=== PATIENT | male | born 1950 | race African-American/Black ===

== ENCOUNTER 2018-10-10 05:14 | Inpatient (IN) ==
[2018-10-03 14:52] LABS: HEMATOCRIT 45.7 % (42.0-52.0); HEMOGLOBIN 15.6 g/dL (14.0-18.0); INR 0.9; MCH 28.2 PG (27-31); MCHC 34.1 g/dL (33-37); MCV 82.6 FL (81-99); MPV 10.1 FL (7.4-10.4); PROTIME 12.8 Seconds (11.0-16.0); RBC 5.53 XMIL (4.7-6.1); RDW 13.3 % (11.5-14.5); WBC 7.73 X1000 (4.8-10.8)
[2018-10-03 14:53] LABS: PTT 29.9 Seconds (22.3-41.8)
--- NOTE | 2018-10-03 15:04 | EKG Report ---
Test Performed on : 10/03/2018 2:33:34 PM Test Reason : PAT Blood Pressure : / mmHG Vent. Rate : 086 BPM Atrial Rate : 086 BPM P-R Int : 220 ms QRS Dur : 100 ms QT Int : 366 ms P-R-T Axes : 070 058 258 degrees QTc Int : 437 ms Sinus rhythm. with 1st degree AV block. Left ventricular hypertrophy with repolarization abnormality Abnormal ECG No previous ECGs available Confirmed by Elliott CARPENTER, Juan C Tapia ([id number]) on 10/03/2018 9:18:17 PM
[2018-10-03 15:31] LABS: AGAP 8; BUN 9 mg/dL (8-22); CALCIUM 9.3 mg/dL (8.8-10.2); CHLORIDE 99 mmol/L (98-107); COSMO 278; CREATININE 0.8 mg/dL (0.7-1.2); ESTIMATED GFR > 60; GLUCOSE 158 mg/dL (70-104); POTASSIUM 3.9 mmol/L (3.5-5.1); SODIUM 138 mmol/L (136-145); TCO2 31 mmol/L (25-35)
[2018-10-10] MEDS ORDERED: PEPCID ONE (05:38)
[2018-10-10] MEDS ORDERED: REGLAN ONE (05:38)
[2018-10-10] MEDS ORDERED: LEVAQUIN 500 MG/D5W 500 MG/100 ML IVPB ONE (05:38)
[2018-10-10] MEDS ORDERED: LR 1,000 ML ONE ×3 (05:38→12:28)
[2018-10-10] MEDS ORDERED: DIPRIVAN 1% ONE (06:24)
[2018-10-10] MEDS ORDERED: FENTANYL ONE (06:24)
[2018-10-10] MEDS ORDERED: NORCURON ONE (06:25)
[2018-10-10] MEDS ORDERED: SODIUM CHLORIDE 0.9% 10 ML ONE (06:25)
[2018-10-10] MEDS ORDERED: ROBINUL ONE ×2 (06:25→08:34)
[2018-10-10] MEDS ORDERED: QUELICIN (DOSE) ONE (06:25)
[2018-10-10] MEDS ORDERED: XYLOCAINE-MPF 2% ONE (06:25)
[2018-10-10] MEDS ORDERED: SENSORCAINE-MPF 0.5%/EPI 1:200,000 ONE (06:33)
[2018-10-10] MEDS ORDERED: B & O 16A SUPP ONE (06:33)
[2018-10-10 08:21] LABS: URINE SOURCE CATH
[2018-10-10 08:26] LABS: BILIRUBIN URINE NEGATIVE (NEGATIVE); BLOOD URINE NEGATIVE (NEGATIVE); COLOR YELLOW; GLUCOSE URINE NEGATIVE (NEGATIVE); KETONE URINE NEGATIVE (NEGATIVE); LEUKOCYTES URINE NEGATIVE (NEGATIVE); NITRITE URINE NEGATIVE (NEGATIVE); PROTEIN URINE NEGATIVE (NEGATIVE); SP GRAVITY URINE 1.005; TURBIDITY URINE CLEAR (CLEAR); UROBILINOGEN URINE NORMAL (NORMAL)
[2018-10-10 08:28] LABS: UR EPITHELIAL CELLS <10 /HPF (<10); URINE BACTERIA NEGATIVE /HPF; URINE RBC <10 /HPF (<10); URINE WBC <10 /HPF (<10)
[2018-10-10] MEDS ORDERED: OFIRMEV 1000 MG/ISOTONIC SOLN 1,000 MG/100 ML BOTTLE ONE (08:32)
[2018-10-10] MEDS ORDERED: ZOFRAN ONE (08:32)
[2018-10-10] MEDS ORDERED: NEOSTIGMINE ONE (08:34)
[2018-10-10] MEDS: DILAUDID ONE ×4 (12:28→13:00)
[2018-10-10] MEDS ORDERED: MORPHINE IV PRN (12:51)
[2018-10-10] MEDS ORDERED: ZOFRAN IV PRN (13:00)
[2018-10-10] MEDS ORDERED: LABETALOL IV PRN (13:00)
[2018-10-10] MEDS: LR 1,000 ML IV SCH ×3 (14:00→20:28)
[2018-10-10] MEDS: NORCO-7.5 PO PRN ×2 (16:33→20:26)
[2018-10-10] MEDS: HUMULIN R SUBQ SCH ×2 (16:37→20:31)
[2018-10-10] MEDS: COLACE PO SCH (20:27)
[2018-10-10] MEDS: TENORMIN PO SCH (20:27)
[2018-10-10] MEDS: PERIDEX MT SCH (20:27)
[2018-10-11] MEDS: NORCO-7.5 PO PRN ×4 (00:48→21:14)
[2018-10-11] MEDS: HUMULIN R SUBQ SCH ×4 (04:21→21:15)
[2018-10-11] MEDS: LEVAQUIN 500 MG/D5W 500 MG/100 ML IVPB IV SCH (04:21)
[2018-10-11] MEDS: LOVENOX SUBQ SCH (07:01)
[2018-10-11 07:12] LABS: HEMATOCRIT 36.2 % (42.0-52.0); HEMOGLOBIN 12.1 g/dL (14.0-18.0); MCH 28.1 PG (27-31); MCHC 33.4 g/dL (33-37); MCV 84.2 FL (81-99); MPV 10.4 FL (7.4-10.4); RBC 4.3 XMIL (4.7-6.1); WBC 11.08 X1000 (4.8-10.8)
[2018-10-11 07:33] LABS: CREATININE 1.5 mg/dL (0.7-1.2); POTASSIUM 3.9 mmol/L (3.5-5.1)
--- NOTE | 2018-10-11 08:10 | PROGRESS NOTE ---
DATE: 10/11/2018 SUBJECTIVE: Postoperative day 1 from a robotic-assisted laparoscopic prostatectomy and urethral suspension. No acute events overnight. The patient's pain has been well controlled. Remains afebrile with stable vital signs. The patient was on nasal cannula and now has been off with 96% oxygen saturation on room air. The patient tolerated clear liquids yesterday. The patient had approximately 1 L of urinary output yesterday. Slightly pinkish tinged urine this morning. Denies any nausea or vomiting. He says he feels that his abdomen is slightly distended , but denies significant pain. OBJECTIVE: Vital signs: Temperature 98.4 degrees, heart rate 77, blood pressure 147/77, oxygen saturation 96% on room air. General: No acute distress. Resting comfortably in bed. Respiratory: Good respiratory effort without audible wheezing or rales. Cardiovascular: No evidence of lower extremity edema. Abdomen: Soft, nontender, slightly distended, but appropriate postoperatively. : Urethral catheter in place with light pinkish urine draining well. No evidence of any clots and appears to be clearing. Skin: All incisions are well healed, covered with skin adhesive. No evidence of any drainage from incisions. LABORATORIES: White blood cell count 11.1, hemoglobin 12.1, hematocrit 36.2, platelets 247,000. Sodium 141, potassium 3.9, chloride 100, bicarb 31, BUN 19, creatinine 1.5, glucose 153. PLAN: Mr. Valerio is a 67-year-old with hypertension, type 2 diabetes, hyperlipidemia, recently diagnosed with low risk prostate cancer and underwent robotic assisted laparoscopic prostatectomy with urethral suspension yesterday. The patient has been doing well. Pain is well controlled. Good urinary output from urethral catheter, approximately 1 L urinary output of clear, pink urinary output. The patient remains afebrile. White blood cell count 11.1. His creatinine did increase from 0.8 to 1.5 today. I think the patient may be slightly dry due to decreased urinary output. We will give a bolus of LR and watch until at least lunchtime. If urine output improves, would hold off on repeating his BMP at this time. The patient received a dose Lovenox this morning. We will continue with oral pain medication and stool softeners with senna and Colace. Encourage the patient to remain ambulatory. Encouraged him to perform incentive spirometry. Continue with his home medications. Received Levaquin for perioperative antibiotics. We will continue to monitor clinically. cc: Elijah Veloz MD [facility]
--- NOTE | 2018-10-11 10:08 | OPERATIVE NOTE ---
PROCEDURE DATE: 10/10/2018 PREOPERATIVE DIAGNOSIS: Low risk prostate cancer. POSTOPERATIVE DIAGNOSIS: Low risk prostate cancer. PROCEDURE PERFORMED: 1. Robotic-assisted laparoscopic prostatectomy. 2. Laparoscopic urethral suspension. SURGEON: Dr. Elijah Veloz. LEARNING CENTER COORDINATOR: Derrek Busch. ANESTHESIA: Endotracheal intubation. SPECIMENS REMOVED: 1. Fat lymph nodes overlying prostate. 2. Prostate 3. Seminal vesicles. 4. Vas deferens. DRAINS: 18-Georgian Garza catheter. BLOOD LOSS: 75 mL. COMPLICATIONS: None. OPERATIVE FINDINGS: The patient had no evidence of any lymphadenopathy of overlying the iliac vessels. The patient did have bilateral indirect inguinal hernias that were fat containing which were easily removed during the dissection of the bladder in the space of Retzius. The patient's prostate measured approximately 40 g. The patient had moderately distended seminal vesicles bilaterally. The prostate was removed in its entirety and appeared to be quite smooth. No obvious a extracapsular extension of prostate cancer external to the specimen. He underwent bilateral nerve-sparing. Patient had slightly enlarged bladder neck that required narrowing. The patient then had vesicourethral anastomosis with testing of the vesicourethral anastomosis with 120 mL with no evidence of any active leak. INDICATION FOR PROCEDURE: Mr. Lynch is a 67-year-old with a history of multiple cores of Gile 3 + 3 prostate cancer. The patient had biopsies that showed cancer present in 7/12 cores. After thorough discussion with patient regarding interventions for his prostate cancer, including radiation, active surveillance, surgery, as well as ablative procedures. Patient elected to proceed with robotic-assisted laparoscopic prostatectomy with urethral suspension. Discussed the risks, benefits, and alternatives of procedure, which include risk of bleeding, infection, damage to surrounding structures, as well as terminal gauger incontinence and erectile dysfunction. After complete discussion of all risks and benefits, the patient elected to proceed. DESCRIPTION OF PROCEDURE: After informed consent was obtained, the patient was brought to the operating room, placed on the operating table in supine position. He underwent general anesthesia and received preoperative antibiotics with Levaquin. The patient was then placed into a dorsal lithotomy position with all pressure points padded with his arms tucked for stability. His abdomen was then shaved. His abdomen and perineum were then prepped and draped in usual sterile fashion. At which time a preop time out was performed with all parties in agreement, including anesthesia, surgical and nursing staff. Next, an 18-Georgian Garza catheter was inserted, which drained clear yellow urine. The ballon was inflated with 10 mL sterile water. At which time, a Veress needle was then placed superior to the umbilicus and then connected with a saline filled syringe. I performed a drop test which showed good flow into the abdomen. With aspiration there was no evidence of blood or succus. The abdomen was then inflated up to a pressure of 15 mmHg. Following this, Marcaine was then injected overlying the incision for a preprocedure block, an incision was made in the skin with a scalpel and in the supraumbilical position, and a 12 mm trocar was then introduced. Following this, laparoscopic scope was inserted and assisted in visualization of the placement of the robotic trocars and the other assistant men's lacrosse coach port. The skin overlying each of the incisions was then infiltrated with Marcaine for a block. Each of the incisions were marked out and using the laparoscope easily visualized as the trocars were passed. No trauma to the bowel or surrounding tissues. There was one robotic trocar on the left, two robotic trocars on the right, as well as assistant men's lacrosse coach port in the left upper quadrant. No evidence of any bowel injury or adhesions were visualized near the trocars. Next, the patient was then placed into a steep Trendelenburg position and the robot was then docked. We initially began by taking down some of the lateral attachments of the left colon. There was attached to the lateral wall of the abdomen which easily allowed for dropping of the colon away from the lateral sidewall. After adequate mobilization of the bowel, there was evidence of several diverticulum present in the sigmoid colon. Next, an incision was made approximately 2 cm above the rectum through the peritoneum. This was divided. At which point, visualization of the left vas deferens was seen. This was isolated and transected and completely dissected out. Following this, we then dissected out the left seminal vesicle. Electrocautery was limited in the lateral portion of the seminal vesicle in order to preserve the neurovascular bundles while using clips for dissection. We then performed a similar procedure on the right side. Upon complete dissection of the vas deferens and seminal vesicles bilaterally. Attention was then placed posterior to the seminal vesicles in Denonvilliers fascia. These were excised to allow dissection down to the perirectal tissues. Following this, were able to dissect both the right and left portions down to the adipose tissues overlying the rectum and free this as far possible towards the apex. Next, our attention was then placed to the anterior abdominal wall and dropping the bladder. The medial umbilical ligaments bilaterally were cauterized and taken down separately to expose the space of Retzius. Once the bladder was then completely dropped, evidence of bilateral fat containing hernias in the indirect position were seen. These were easily dissected out with no evidence of any bowel or bladder in the hernias. After complete dropping the bladder, fat overlying the endopelvic fascia and the prostate was excised and sent as a separate specimen with the fat lymph nodes overlying the prostate. We then excised the endopelvic fascia following the contour of the prostate toward the apex. The puboprostatic ligaments were quite broad and these were sharply divided bilaterally. The superficial dorsal vein complex was then controlled by bipolar cautery. Following this, the deep dorsal vein complex was then visualized and suture ligated with a 0 V-Loc suture in a [id number] fashion with an anterior periosteal suture. After this, our attention was then placed to dissecting the bladder neck. This was identified by gently tugging on the Garza catheter with the balloon inflated and using monopolar cautery we were able to incise the bladder neck. The Garza catheter was encountered and brought out of the defect. The 4th arm was then used to place anterior traction on the prostate. This allowed for good visualization of the posterior bladder and the plane was dissected in the area of tissue between the prostate and the bladder. There was no evidence of any median lobe. Following complete incision, the posterior bladder neck was made circumferentially and the prostate was further elevated anteriorly with the 4th arm in the plane developed between the prostate and the bladder posteriorly until visualized the vas deferens and seminal vesicles of the prostate. The bladder neck was quite broad, likely related to the size of the prostate's lateral lobes. After dissecting off of the bladder and prostate, we were able to use the 4th arm to retract the vas deferens and seminal vesicles. These were brought up into view and dissected out the neurovascular bundles on the left side and using hemo-lock clips and avoiding cautery to the bundles. We then attempted to peel away the neurovascular bundles posterior and lateral on the left side of the prostate. An antegrade and retrograde neurovascular nerve spare was attempted once completely dissected the prostate away from the neurovascular bundle. We were able to dissect through the prostatic pedicles and the neurovascular bundle. Following this, attention was then placed on the right side. A similar type procedure was performed to allow good mobility of the nerves off of the prostate and preserving the neurovascular bundles. Following this, good mobility of the prostate was obtained after dissection of the neurovascular bundles bilaterally. Attention was then placed to dissecting the apex. The dorsal vein complex was divided with monopolar until the periurethral tissues were seen and this was dissected sharply with cold scissors. This allowed for good mobilization of the prostate away from the urethra, with good urethral sparing. The urethra was then sharply transected with scissors. Following this , a posterior lip of the prostate was dissected away and the posterior fascia was then excised sharply to completely dissect off the prostate. The prostate was then placed into an Endo Catch bag, as well as residual fat overlying the prostate. The field was then irrigated and hemostasis appeared to be excellent. Pressure was then decreased down to 3. No evidence of any active bleeding. Following this, 3-0 Vicryl was placed into the abdomen and bladder neck reconstruction was undertaken. The bladder neck appeared to be quite broad. Using [id number] sutures, I was able to narrow the bladder neck to an appropriate size. Both ureteral orifices and the trigone was visualized and far away from our closure. Efflux was seen from both orifices after our reconstruction. Next, a 3-0 V-Loc suture was then introduced into the abdomen and a posterior Zay stitch was performed in a running fashion, connecting the posterior vesicle fascia and posterior urethral fascia layers. This was able to approximate the bladder to the urethra and later saved for a laparoscopic urethral suspension. Next, we performed a formal vesicourethral anastomosis using two 3-0 running Vicryl sutures that were tied to one another in a clockwise and counter-clockwise fashion, eventually crossing the sutures anteriorly. Next, we then placed a new 18- Georgian Garza catheter and anastomosis was then tested with 120 mL of sterile irrigant. This found to be watertight with good filling of the bladder with no evidence of leak from the anastomosis. The bladder was then distended appropriately and drained effectively. We then placed our attention to the tying down the vesicourethral anastomosis sutures. We then performed a laparoscopic urethral suspension which was performed with the previously placed sutures from the posterior plate to the pubic periosteum. Good support was obtained for the urethral anastomosis which appeared to be well positioned. Pressure was then again decreased down to 3 mmHg without any evidence of any active bleeding. Instruments were then all removed and the robot was undocked. We then removed the specimen, extending the supraumbilical incision to allow for removal of the EndoCatch bag. The wound was then copiously irrigated and 0 PDS suture was then used to close the supraumbilical incision and 0 Vicryl was then used to close the fascia of the 12 mm system port. Incisions were then injected again with Marcaine and a postprocedure block. Wounds were then irrigated once more and a 4-0 Monocryl suture was then used to close subcuticular at each of the incisions and prior port sites. Following this, Covidien adhesive was then applied. The catheter was then placed to gravity drainage with StatLock on the lower extremity. The patient was then extubated, awoken and was taken to recovery in stable condition. All lap and suture counts were correct. Dr. Busch was present for all orta portions of the procedure and he acted as my assistant men's lacrosse coach. DISPOSITION: The patient will be admitted to the hospital overnight for monitoring. cc: Elijah Veloz MD [facility]
[2018-10-11] MEDS: NORVASC PO SCH (10:11)
[2018-10-11] MEDS: COLACE PO SCH ×2 (10:11→21:14)
[2018-10-11] MEDS: PERIDEX MT SCH ×2 (10:11→21:14)
[2018-10-11] MEDS: TENORMIN PO SCH ×2 (10:11→21:14)
[2018-10-11] MEDS: LR 1,000 ML IV SCH ×9 (11:49→21:13)
--- NOTE | 2018-10-11 11:55 | Diag Imaging Result Doc PS360 ---
CT HEAD W/O CONTRAST - 10/11/2018 INDICATION: Neurologic changes, with right side weakness COMPARISON: None FINDINGS: The ventricles and sulci are normal in size and contour. There is mild patchy cerebral white matter chronic microvascular disease. No intracranial mass or hemorrhage. The skull is intact. The sinuses are clear. IMPRESSION: No acute process by CT. Consider a brain MRI. This exam was performed using automated exposure control, adjustment of mA or kV according to patient size, and/or use of iterative reconstruction technique Electronically signed by John Yang 10/11/2018 11:53 AM
[2018-10-11 12:04] LABS: HEMATOCRIT 35.8 % (42.0-52.0); MCH 28.4 PG (27-31); MCHC 33.5 g/dL (33-37); MCV 84.8 FL (81-99); RBC 4.22 XMIL (4.7-6.1); WBC 14.19 X1000 (4.8-10.8)
[2018-10-11 12:16] LABS: INR 1.16; PROTIME 15.8 Seconds (11.0-16.0); PTT 33.9 Seconds (22.3-41.8)
[2018-10-11 12:32] LABS: CALCIUM 8.3 mg/dL (8.8-10.2); CREATININE 1.5 mg/dL (0.7-1.2); POTASSIUM 4.2 mmol/L (3.5-5.1)
--- NOTE | 2018-10-11 15:26 | CONSULTATION ---
DATE OF CONSULTATION: 10/11/2018 REASON FOR CONSULTATION: Possible stroke. HISTORY OF PRESENT ILLNESS: This is a 67-year-old right-handed male with history of diabetes, hypertension, who was admitted for laparoscopic prostatectomy and urethral suspension. He was diagnosed with low risk prostate cancer recently. He is postop day 1 from the surgery and has done well in that regard. Apparently this morning the nurse thought that he was a little bit confused, and when they were examining him and asking him to plantar flex and dorsiflex, he was not participating; however, he seemed to think that he was doing it. This was with the right leg. He seemed to be a little bit confused as well. There was no weakness noted to his right arm. No mention of facial asymmetry. Head CT was obtained that did not show acute findings. When talking with the patient, he tells me that he has had difficulty with his right leg for over a year. It started when he lived in [place]. He says his knee radha and gives out on him randomly. It is not painful. He has no pain associated with it. He reports "spasm" but with further questioning, he indicates that spasm to him means that the knee keeps repeatedly giving way, more like clustering. He denies numbness. He feels that it has given way more recently in the last month. He was given a cane to use in [place] and has been using that more frequently recently. He denies back pain. No bowel or bladder changes. No leg pain. No shooting pain. When asking why he is in the hospital, he initially seemed to not recall that he had just undergone a surgical procedure and instead began talking randomly. Later though, he agreed he just had a surgical procedure. PAST MEDICAL HISTORY: He reports diabetes, hypertension and a recent prostate cancer diagnosis. FAMILY HISTORY: His father had a stroke. No seizures. SOCIAL HISTORY: No tobacco or illicits. He reports occasional social alcohol. He is a retired computer mechanic. He lives with his mother in [place]. ALLERGIES: Listed to amoxicillin and iodine. REVIEW OF SYSTEMS: A balance of 12 was conducted and otherwise is negative except for that detailed in the HPI. He denies headache or visual changes in addition to the above. PHYSICAL EXAMINATION: Vital signs: He is afebrile. Blood pressures were elevated on admission at 160s to 190 over 100 but since that time have been recently 130s to 170s systolic over 70s to 80s diastolic, pulse 70s, respirations 16, saturation 96% on room air. No hypotensive recordings. Sitting up in bed feeding himself lunch. He is awake, alert, oriented to self, the president. He initially says that he is at home and then later agrees he is in the hospital. He initially said 1919 and then corrected to 2019. He knew the month of October. He was off by one day on the date and day of the week. He follows simple and complex commands. Left right and digit distinction preserved. No language disturbance. No dysarthria. Discussed recent and remote events, though there were a couple of times discussing recent events that he seems very slightly confused. His pupils are miotic 2mm, with very minimal size asymmetry, round and reactive to light. Gaze conjugate and forward. EOMs are full. Face symmetric with equal activation. Facial sensation intact. Tongue is midline. Palate elevates symmetrically. He can hear. Shoulder shrug is full. No drift. Strength is preserved in the arms and legs and symmetric both distally and proximally. Rapid alternating movements and finger to nose are intact. He reports preserved sensation to light touch and pinprick on the arms and legs. Reflexes absent at the ankles, 1+ at the knees, 2+ at the wrist. No clonus. Planar response is flexor. I did not test his gait. DIAGNOSTIC DATA: Head CT personally reviewed, no acute findings. White count is 14 today. Normal sodium. Creatinine 1.5 today, yesterday normal. Normal BUN. Blood sugar is 120s to 200. ASSESSMENT AND PLAN: A 67-year-old male with a history of diabetes and hypertension as well as recent low grade prostate cancer diagnosis, who is postop day 1 from laparoscopic prostatectomy. He had an event of confusion, and possibly right lower extremity weakness. He does not have focal symptoms on my exam currently, though I do get a sense of some slight confusion. His confusion could be related to medications he has received postop, and if so, should hopefully clear. It seems very minimal on exam currently. With regard to the concern for transient right lower extremity weakness, I am reassured with a negative head CT; however, I think an MRI would provide a more detailed look to rule out stroke. It would not rule out TIA though. I would continue to monitor him with neurochecks. Continue IVFs as tolerated and avoid hypotension. Given his risk factors, I think a low dose aspirin daily would be of benefit once it is safe for him to take that from a post surgery perspective. Continue aggressive blood sugar control, check lipid profile. Thank you for the consultation. cc: MD Elijah Carolina MD MTDD
[2018-10-11 17:34] LABS: URINE SOURCE CATH
[2018-10-11 17:45] LABS: UR EPITHELIAL CELLS <10 /HPF (<10); URINE BACTERIA NEGATIVE /HPF; URINE RBC TNTC /HPF (<10); URINE WBC TNTC /HPF (<10)
[2018-10-11 17:46] LABS: BILIRUBIN URINE NEGATIVE (NEGATIVE); BLOOD URINE LARGE (NEGATIVE); COLOR ORANGE; GLUCOSE URINE NEGATIVE (NEGATIVE); KETONE URINE NEGATIVE (NEGATIVE); LEUKOCYTES URINE MODERATE (NEGATIVE); NITRITE URINE NEGATIVE (NEGATIVE); PH URINE 5.5; PROTEIN URINE 100 mg/dL (NEGATIVE); SP GRAVITY URINE 1.018; TURBIDITY URINE TURBID (CLEAR); UROBILINOGEN URINE NORMAL (NORMAL)
[2018-10-11] MEDS: LIPITOR PO SCH (21:13)
[2018-10-12] MEDS: HUMULIN R SUBQ SCH ×3 (02:58→15:11)
[2018-10-12] MEDS: NORCO-7.5 PO PRN (02:59)
[2018-10-12] MEDS: LEVAQUIN 500 MG/D5W 500 MG/100 ML IVPB IV SCH (02:59)
[2018-10-12] MEDS: LOVENOX SUBQ SCH (05:39)
[2018-10-12 06:37] LABS: HEMATOCRIT 29.9 % (42.0-52.0); HEMOGLOBIN 9.9 g/dL (14.0-18.0); MCH 28.2 PG (27-31); MCHC 33.1 g/dL (33-37); MCV 85.2 FL (81-99); MPV 10.3 FL (7.4-10.4); RBC 3.51 XMIL (4.7-6.1); WBC 13.21 X1000 (4.8-10.8)
[2018-10-12 06:57] LABS: AGAP 9; BUN 25 mg/dL (8-22); CALCIUM 8.2 mg/dL (8.8-10.2); CHLORIDE 101 mmol/L (98-107); COSMO 280; CREATININE 1.4 mg/dL (0.7-1.2); ESTIMATED GFR > 60; GLUCOSE 132 mg/dL (70-104); POTASSIUM 3.8 mmol/L (3.5-5.1); SODIUM 137 mmol/L (136-145); TCO2 27 mmol/L (25-35)
[2018-10-12] MEDS: TENORMIN PO SCH ×2 (08:20→22:12)
[2018-10-12] MEDS: PERIDEX MT SCH ×2 (08:20→22:12)
[2018-10-12] MEDS: COLACE PO SCH ×2 (08:20→22:12)
[2018-10-12] MEDS: NORVASC PO SCH (08:20)
[2018-10-12] MEDS: LASIX IV SCH (08:20)
[2018-10-12] MEDS: LR 1,000 ML IV SCH ×9 (08:22→17:59)
--- NOTE | 2018-10-12 08:23 | PROGRESS NOTE ---
DATE: 10/12/2018 SUBJECTIVE: Postop day 2 from a robotic-assisted laparoscopic prostatectomy with urethral suspension. Overall, patient seems to be doing much better today. The patient had 800 mL of urine output recorded yesterday. However, the urine in the chamber this morning is over 400 mL of clear yellow urine that was unrecorded. The patient yesterday had some episodes of lower extremity weakness, most common on the right lower extremity with difficulty lifting his leg, which is improved. The patient was seen by Neurology and a CT of the head was performed which was negative for cerebrovascular accident. The patient overall states he feels better. He feels like he is going to pass some gas this morning. Denies any nausea or vomiting. He has been tolerating a diabetic diet. OBJECTIVE: Vital signs: Temperature 99.1 degrees, pulse 96, blood pressure 141 /91, oxygen saturation 95% on room air. Respiratory: Good respiratory effort without audible wheezing or rales. Cardiovascular: No evidence of tachycardia. 1+ lower extremity edema. Abdomen: Soft, nontender. Continues to have mild distention, which is slightly improved from yesterday. Genitourinary: Urethral catheter in place with clear yellow urine, approximately 400 mL present within the catheter bag. Multiple mL of urine drained during evaluation this morning. Normal phallus. Normal testicles bilaterally. Small amount of bruising present within the scrotum wall itself. Musculoskeletal: Moving all extremities. Neurologic: Gross motor and sensory intact with equal strength in bilateral lower extremities. LABORATORY DATA: White blood cell count 13.1, hemoglobin 9.9, hematocrit 29.9, platelets 207,000. Sodium 137, potassium 3.8, chloride 101, bicarb 27, BUN 25, creatinine 1.4, glucose 132, calcium 8.2. ASSESSMENT AND PLAN: Mr. Lynch is a 67-year-old with type 2 diabetes, hypertension, hyperlipidemia, who was recently diagnosed with low-risk prostate cancer and underwent robotic- assisted laparoscopic prostatectomy with urethral suspension on Wednesday. The patient developed some right lower weakness yesterday on assessment by nursing and noticed changes in pupils. The patient underwent a CT of the head which was negative, and a neurology consult. It was recommended that he get an MRI performed. We will plan to try to obtain this today. The patient did have some decreased urinary output, which was reddish. A UA was sent yesterday, which showed a large amount of protein, blood and leukocytes. This is likely partly related to surgery, but also could be related to myoglobinuria due the redness of his urine. Myoglobin was sent yesterday, awaiting for it to return. The patient's urine output has improved. The patient does take a Lasix at home and is net positive a little over 4 L since admission. I think this is likely leading to some dilutional anemia. We will give him a low dose of Lasix today 20 mg IV. The patient takes 40 mg daily at home. Will continue with his home medications, oral pain medications as needed, Colace and Senna today. The patient feels like he may have flatus later this morning. The patient's pain seems to be well controlled. He is tolerating p.o. intake. His distention is improving. Encourage him to be ambulatory. Continue with incentive spirometer. Will continue to monitor for clinical progress and neurology recommendations. cc: Elijah Veloz MD MTDD
--- NOTE | 2018-10-12 11:15 | Diag Imaging Result Doc PS360 ---
EXAM: MRI BRAIN W/O CONTRAST INDICATION: r/o stroke COMPARISON: CT head dated 10/11/2018. No prior MRI is available for comparison. FINDINGS: There are several foci of restricted diffusion in the frontal lobes and parietal lobes bilaterally indicating acute multifocal lacunar infarcts, predominantly in the periventricular white matter. The distribution is somewhat suspicious for a venous infarct. However, no abnormal cerebral venous flow voids are appreciated. It may also represent an embolic phenomenon, however. MRV may be helpful if clinically warranted. There is also patchy T2/FLAIR hyperintensity in the periventricular and subcortical white matter indicating moderate white matter microangiopathy. There is no discrete intracranial mass, mass effect, or intracranial hemorrhage. The surrounding soft tissues and bony structures are essentially unremarkable. IMPRESSION: Multifocal acute infarcts bilaterally mainly in the periventricular region. Please see above discussion. The findings were discussed with the patient's nurse, Ange Cardenas, at 10/12/2018 11:12 AM and was acknowledged. Electronically signed by Luis Flores 10/12/2018 11:13 AM
--- NOTE | 2018-10-12 16:31 | EKG Report ---
Test Performed on : 10/12/2018 4:22:09 PM Test Reason : Recent CVA and low grade tachycardia Blood Pressure : / mmHG Vent. Rate : 095 BPM Atrial Rate : 095 BPM P-R Int : 220 ms QRS Dur : 094 ms QT Int : 332 ms P-R-T Axes : 045 008 231 degrees QTc Int : 417 ms Sinus rhythm. with 1st degree AV block. ST & T wave abnormality, consider inferolateral ischemia Abnormal ECG When compared with ECG of 03-OCT-2018 14:33, No significant change was found Unconfirmed Result
[2018-10-12] MEDS: LIPITOR PO SCH (22:12)
[2018-10-13 07:08] LABS: BASO# 0.02 X1000 (0.0-0.2); BASO% 0.2 % (0.0-0.8); EOS# 0.12 X1000 (0.0-0.7); EOS% 1.1 % (0.0-10.0); HEMATOCRIT 29.8 % (42.0-52.0); HEMOGLOBIN 9.7 g/dL (14.0-18.0); IMM GRAN# 0.02 X1000 (0.0-0.04); IMM GRAN% 0.2 % (0.0-0.5); LYMPH# 1.23 X1000 (1.2-3.4); LYMPH% 11.2 % (20.5-51.1); MCH 27.4 PG (27-31); MCHC 32.6 g/dL (33-37); MCV 84.2 FL (81-99); MONO# 1.21 X1000 (0.11-0.59); MONO% 11.1 % (1.7-9.3); MPV 10.5 FL (7.4-10.4); NEUT# 8.34 X1000 (1.4-6.5); NEUT% 76.2 % (42.2-75.2); PLT 231 X1000 (130-400); RBC 3.54 XMIL (4.7-6.1); RDW 12.8 % (11.5-14.5); WBC 10.94 X1000 (4.8-10.8)
[2018-10-13 07:28] LABS: AGAP 9; BUN 17 mg/dL (8-22); CALCIUM 8.6 mg/dL (8.8-10.2); CHLORIDE 106 mmol/L (98-107); COSMO 292; ESTIMATED GFR > 60; GLUCOSE 168 mg/dL (70-104); MAGNESIUM 1.9 mg/dL (1.5-2.7); PHOSPHORUS 2.1 mg/dL (2.7-4.5); POTASSIUM 3.6 mmol/L (3.5-5.1); SODIUM 144 mmol/L (136-145); TCO2 29 mmol/L (25-35)
[2018-10-13] MEDS: LR 1,000 ML IV SCH ×4 (07:42→15:44)
--- NOTE | 2018-10-13 08:47 | PROGRESS NOTE ---
DATE: 10/13/2018 SUBJECTIVE: Postoperative day 3 from a robotic-assisted laparoscopic prostatectomy and urethral suspension. Had improved urinary output yesterday with over 3.9 L of output. His catheter is draining clear yellow urine. He remains afebrile with stable vital signs. Denies any neurologic changes. Went for an MRI yesterday that showed possible ventricular venous infarcts. Underwent an MRV which was reported as normal by Dr. Flores. Performed echocardiogram yesterday. Waiting for results. Sent cardiac enzymes which were all negative. Overall, patient appears to be stable. He is tolerating a diet, passing gas, with good pain control. OBJECTIVE: Vital Signs: Temperature 98.5 degrees, blood pressure 153/80, heart rate 81, oxygen saturation 100% on room. General: Alert and oriented x3. Respiratory: Good respiratory effort without audible wheezing or rales. Abdomen: Soft, nontender, nondistended. No palpable masses. : Urethral catheter in place, draining clear yellow urine. No evidence of any scrotal or penile edema. No suprapubic tenderness. Neurologic: Gross motor and sensory intact. Moving all extremities without defects. Skin: Incisions are well-healed, covered with Covidien skin glue. Labs: White blood cell count 10.9, hemoglobin 9.7, hematocrit 29.8, platelets 231,000. Sodium 144, potassium 3.6, chloride 106, bicarb 29, BUN 17, creatinine 1.0, glucose 168. ASSESSMENT AND PLAN: Mr. Lynch is a 67-year-old with type 2 diabetes, hypertension, and hyperlipidemia who was recently diagnosed with low risk prostate cancer and underwent robotic- assisted laparoscopic prostatectomy and urethral suspension on Wednesday. The patient developed some lower extremity weakness on Wednesday. Assessed by nursing with changes in left pupils and lower extremity weakness. The patient underwent a CT head which was negative, and underwent a neurology consult. The patient underwent MRIs yesterday which showed possible intraventricular hemorrhage bilaterally. The patient's urine output has improved with good urinary output with clear yellow urine and 3.9 L. The patient's labs have improved with creatinine improving to 1.0 from 1.4. Overall, the patient seems to be doing well without issue. Underwent an echocardiogram yesterday, awaiting for results and further recommendations from neurology. From a urology standpoint, the patient is doing well and could be discharged home. Clinically, he seems to be improving. We will continue to monitor. Continue on pain medications, stool softeners. Lovenox daily. Continue diet as tolerated. Follow-up prior imaging studies and Neurology recommendations. cc: Elijah Veloz MD MTDD
[2018-10-13] MEDS: NORVASC PO SCH (08:49)
[2018-10-13] MEDS: PERIDEX MT SCH (08:49)
[2018-10-13] MEDS: TENORMIN PO SCH (08:49)
[2018-10-13] MEDS: LASIX IV SCH (08:49)
[2018-10-13] MEDS: COLACE PO SCH (08:52)
--- NOTE | 2018-10-13 12:08 | PROGRESS NOTE ---
DATE: 10/13/2018 SUBJECTIVE: Dr. Dobbs saw Mr. Lynch for initial neurology consultation a few days ago. Today. he reports he feels well. He denies headache. He notices very minor chronic right leg weakness to be at baseline. He reports no other weakness and no new neurologic problems. Workup includes brain MRI done yesterday showing bilateral periventricular small infarctions with restricted diffusion in the white matter of both hemispheres. MRV was recommended and done yesterday with verbal report that there was not a definite abnormality, but I do not see the typed report yet. I believe that he had an echocardiogram yesterday with report pending. OBJECTIVE: On my exam, he is awake, alert, attentive. His speech is a little bit difficult to understand, but that may be cultural and accent. I cannot identify a specific dysarthria. Language function is intact. Memory of recent and remote events is good. He is completely oriented to all parameters. He discussed recent news with accurate details. He has full visual vogel. Extraocular movements are full. Facial motility is symmetric. Tongue is midline. Strength is normal in the left limbs. I can overcome the right arm grading 4/5 at the deltoid. Right anterior tibialis 4/5. Tone is equal in the limbs on the left and right. He did well on [id number] testing bilaterally. He reports symmetric sensation on gross testing over the limbs. I did not test his gait. IMPRESSION: 1. Mild right arm weakness and mild right leg weakness. He reports right leg weakness has been present for the last year and he believes it is at baseline this week. 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 He does not report radicular symptoms, radicular back pain, specific injury. The right arm weakness may be new. He may have right hemiparesis associated with the imaging evidence of acute subcortical infarction. The scan shows findings in both hemispheres, but I do not find a deficit to correlate with the right hemisphere findings. 2. Imaging evidence of acute subcortical infarction bilaterally. With negative MRV report,we need to see the echocardiogram report. He has risk factors for cerebrovascular ischemic problems including hypertension, diabetes mellitus, age. He had been taking atorvastatin prior to admission and his lipid profile is good. 3. There was reported to be confusion a few days ago when he was discovered to be different neurologically. In retrospect, I wonder if he might have had transient dysphasia associated with what may now be apparent right hemiparesis. Either way, he seems completely intact mentally now. PLAN: I do not have any urgent suggestion. Further plans will depend on his clinical course and the echocardiogram report. Recent blood pressures have ranged 130s-170s and that range is reasonable while we are following him after probable acute ischemic stroke. Longer term, he will need to treat blood pressure more aggressively. I would continue his statin and, when not contraindicated from a postsurgical standpoint, add antiplatelet medicine. Thanks for asking Neurology to see Mr. Lynch. cc: MD Elijah Dewitt III, MD MTDD
[2018-10-13 15:39] VITALS: BP 182/88
[2018-10-13] MEDS: HUMULIN R SUBQ SCH (15:45)
--- NOTE | 2018-10-13 16:37 | ECHO REPORT ---
ORDER DATE: 10/12/2018 ECHOCARDIOGRAPHIC MEASUREMENTS: 1. Left ventricular internal diameter diastole 3.7. 2. End-systole 2.8. 3. Septal thickness 1.6. 4. Posterior wall thickness 1.5. 5. Left atrium 3.9. 6. Aortic root 3.7. SUMMARY: 1. Fair quality study. 2. Very mild sclerosis of aortic valve demonstrated involving predominantly the tip of the left coronary cusp with normal aortic valve opening evident. Peak gradient across aortic valve is 14 mmHg. Mitral, tricuspid and pulmonic valves are without evidence of structural abnormality with very mild mitral regurgitation and very mild tricuspid regurgitation. The estimated systolic PA pressure by Doppler is 55 mmHg suggesting moderate pulmonary hypertension. Aortic root is normal in size. 3. Normal left ventricular chamber size with moderate concentric left hypertrophy demonstrated. Estimated left ventricular ejection fraction appears to be at least 55%. No regional wall motion abnormality is evident. Left atrium is mildly enlarged on 2-dimensional images. Right atrium and right ventricle are normal in size with grossly preserved right ventricular systolic function. 4. No pericardial effusion. 5. Appearance of inferior vena cava suggests normal central venous pressure. CONCLUSIONS: 1. Very mild sclerosis of trileaflet aortic valve without aortic stenosis. 2. Very mild mitral regurgitation. 3. Very mild tricuspid regurgitation with moderate pulmonary hypertension by Doppler. 4. Moderate concentric left hypertrophy with estimated left ventricular ejection fraction at least 55%. 5. Mild left atrial enlargement. cc: MD Elijah Davis MD
--- NOTE | 2018-10-15 06:56 | DISCHARGE SUMMARY ---
ADMISSION DATE: 10/10/2018 DISCHARGE DATE: 10/13/2018 PREOPERATIVE DIAGNOSIS: Low-risk prostate cancer. POSTOPERATIVE DIAGNOSES: 1. Intermediate risk of prostate cancer. 2. Periventricular infarcts with concern for acute cerebrovascular accident. 3. Myoglobinuria. ADMISSION DATE: 10/10/18 DISCHARGE DATE: 10/13/18 PROCEDURE PERFORMED: 1. Robotic-assisted laparoscopic prostatectomy. 2. Laparoscopic urethral suspension. HISTORY OF PRESENT ILLNESS: Mr. Lynch is a 67-year-old with type 2 diabetes, hypertension, hyperlipidemia, who presented to Urology Clinic with an elevated PSA. PSA was elevated on repeat value and underwent a prostate biopsy. Prostate biopsy showed 7/12 cores of [place] 3 + 3 prostate cancer. Due to this finding, it was recommended that he proceed with treatment. All treatment options were discussed with the patient and the patient elected to proceed with robotic- assisted laparoscopic prostatectomy. Risks, benefits, alternatives of this procedure were discussed with the patient and the patient elected to proceed. HOSPITAL COURSE: The patient presented to the preop holding area the morning of 10/10/2018, was taken to the operating room where he underwent robotic-assisted laparoscopic prostatectomy with urethral suspension. Procedure was uneventful and he was transferred to recovery in stable continue. He was admitted for observation overnight. The patient did well overnight. He had relatively good urinary output right after surgery, but this slowly decreased and his urine remained slightly reddish. Patient was able to tolerate p.o. intake and had good pain control. He had decreased urinary output and had an increase in his creatinine to 1.5 from preop value of 0.8. On midmorning postoperative day 1, the patient was found to have weakness in his lower extremity which he said was present for a number of years now, but was also found to have a changes in his pupils and cognition on assessment by nursing. Urology was notified and ordered a stat CT of the head and consulted Neurology. CT of the head was negative. Neurology evaluated the patient and recommended obtaining an MRI. MRI of the brain was performed, which showed multifocal acute infarcts bilaterally, mainly in the periventricular region. Talking with Neurology, they recommended a MR venogram which was also performed and was normal. His neurologic symptoms seemed to resolve completely. The patient denied any neurologic changes. He said his strength improved. The patient's urine output significantly improved on postop day 2, making nearly 4 L of urine. He was able to be ambulatory, had good pain control and began having bowel function, first with gas and then later with bowel movements. The patient's pain remained well controlled. The patient underwent an echocardiogram, which showed no evidence of any valvular trauma or abnormalities. EKG as well as cardiac enzymes were all within normal limits. Talking with Neurology, it was recommended that patient remains with good blood pressure control, on a statin, and they desired to start him on aspirin. These were all initiated. The patient remained in good condition and subsequently was discharged home on postoperative day 3. DISCHARGE MEDICATIONS: 1. Aspirin 81 mg. 2. [place] 7.5/325 mg take 1 tablet q.6 hours as needed for pain. 3. Colace 100 mg b.i.d. 4. Senna 8.6 mg b.i.d. DISCHARGE INSTRUCTIONS: The patient was encouraged to remain ambulatory in post hospital setting. He is encouraged to limit his weight lifting to less than 10 pounds, approximately the weight of a 1 gallon jug of milk, for at least 4 weeks following his procedure. The patient was encouraged to call Urology Clinic if developed worsening pain, inability to tolerate p.o. intake, decreased bowel function, fevers, chills, or nondraining catheter. The patient was given the phone number for the urology clinic, encouraged to follow with emergent medical/surgery registered nurse if symptoms persisted. DISCHARGE PLANS: The patient will be discharged home to return to clinic next week for catheter removal. Pathology was discussed with the patient prior to discharge and showed T2c with [place] 3 + 4, involvement of 15% of the gland. The patient will need follow-up PSA in 3 months. We will plan for him to return to clinic for evaluation of incontinence and recovery in 1 to 2 weeks. cc: MD JORDYN Gupta
--- NOTE | 2018-10-17 14:01 | Diag Imaging Result Doc PS360 ---
EXAM: MRI BRAIN W/O CONTRAST (MR venogram) INDICATION: Multi Focal Infarcts COMPARISON: 3-D [id number] and 3-D MIPS were obtained. FINDINGS: The inferior sagittal sinus is identified but is diminutive, this is usually a normal variant. The visualized dural and deep venous sinuses show normal flow characteristics, otherwise. No discrete venous thrombosis is identified. Specifically, the superior sagittal sinus, great vein of [place], deep cerebral veins, straight sinus, transverse sinuses, and sigmoid sinuses appear patent. IMPRESSION: Incidental diminutive inferior sagittal sinus, usually normal variant, but no evidence of dural or deep venous thrombosis. Electronically signed by Luis Flores 10/17/2018 1:59 PM
== END 2018-10-13 18:56 | disposition home or self-care (01) | DRG 707 ==
LOC: OR 05:14 → 4N 05:14 → DIRADM 05:14 → UNDODISOB 10-13 18:56
PROVIDERS: ADMIT Urology; ATTEND Urology
CPT/HCPCS: 70450; 70551; 80048; 81001; 82550; 82948; 83605; 83735; 83874; 84100; 84484; 85025; 85027; 85610; 85730; 87088; 88309; 93005; 93010; 93306; 93308; 94761; 94799; A9270; A9579; J0131; J0330; J1170; J1650; J1940; J1956; J2405; J3010; J7120; S2900; XXXXX